=== PATIENT | female | born 1975 | race Caucasian/White ===

== ENCOUNTER 2018-06-24 12:53 | Inpatient (IN) | payer MEDICAID ==
[~2018-06-24] VITALS: Ht 149.9 cm; Wt 62.7 kg
[2018-06-24] MEDS ORDERED: HYDROmorphone 1 mg/ml syringe IM ONE (13:25)
[2018-06-24] MEDS ORDERED: ondansetron/PF 4mg/2ml inj IV ONE (13:50)
[2018-06-24] MEDS ORDERED: HYDROmorphone 1 mg/ml syringe IV ONE (14:45)
[2018-06-24 15:00] LABS: ALANINE AMINOTRANSFERASE 19 U/L (12-78); ALBUMIN 3.6 G/DL (3.4-5.0); ALKALINE PHOSPHATASE 69 IU/L (46-116); ANION GAP 7 (8-16); ASPARTATE AMINO TRANSFERASE 15 U/L (10-37); BILIRUBIN,TOTAL 0.3 MG/DL (0.1-1.0); BLOOD UREA NITROGEN 16 MG/DL (7-18); BUN/CREATININE RATIO 29.1 (6.6-38.0); CALCIUM 9.4 MG/DL (8.5-10.1); CHLORIDE 104 MMOL/L (99-107); CREATININE 0.55 MG/DL (0.40-0.90); GLUCOSE 102 MG/DL (70-104); POTASSIUM 4.4 MMOL/L (3.5-5.1); SODIUM 141 MMOL/L (135-145); TOTAL CARBON DIOXIDE 30.1 MMOL/L (24-32); TOTAL PROTEIN 7.3 G/DL (6.4-8.2); eGFR > 90 ML/MIN
[2018-06-24 15:08] LABS: PARTIAL THROMBOPLASTIN TIME 27 SECONDS (22-32)
[2018-06-24 15:27] LABS: HEMATOCRIT 42.8 % (35.0-45.0); HEMOGLOBIN 14.1 g/dl (12.0-16.0); MEAN CORPUSCULAR HEMOGLOBIN 30.7 PG (27.0-31.0); MEAN CORPUSCULAR VOLUME 93.1 FL (78-98); MEAN PLATELET VOLUME 9.6 FL (7.4-10.4); PLATELET COUNT 316 X10'3 (140-440); RED CELL DISTRIBUTION WIDTH 13.7 % (11.5-14.5); WHITE BLOOD COUNT 8.1 X10'3 (4.5-11.0)
[2018-06-24 15:46] LABS: PLATELET ESTIMATE NORMAL; TOTAL CELLS COUNTED 100
[2018-06-24 15:55] LABS: CLARITY,URINE SLIGHTLY CLOUDY (Clear); COLOR,URINE YELLOW (Yellow); GLUCOSE, URINE NEGATIVE (Neg); KETONES,URINE NEGATIVE (Neg); LEUKOCYTE ESTERASE ,URINE NEGATIVE (Neg); NITRITES, URINE POSITIVE (Neg); OCCULT BLOOD,URINE NEGATIVE (Neg); PH,URINE 6.5 (4.8-8.0); PROTEIN,URINE NEGATIVE (Neg)
[2018-06-24 16:05] LABS: UA COLLECTION TYPE FOLEY CATH
[2018-06-24 16:07] LABS: BACTERIA,URINE 4+ /HPF (Neg); RBC,URINE NONE SEEN /HPF (0-2); WBC,URINE 0-4 /HPF (0-4)
[2018-06-24 16:08] LABS: SQUAMOUS EPITHELIAL CELL,UR FEW /LPF (FEW)
[2018-06-24] MEDS ORDERED: CLON-527 PO (16:28)
[2018-06-24] MEDS ORDERED: ATOR20TA66 PO (16:30)
[2018-06-24] MEDS ORDERED: CARI350T PO (16:30)
[2018-06-24] MEDS ORDERED: OXYC-150 PO (16:31)
[2018-06-24] MEDS ORDERED: HYDROcodone/acetaminophen 5mg/325mg tablet PO PRN (16:35)
[2018-06-24] MEDS ORDERED: HYDROcodone/acetaminophen 10/325mg tab PO PRN (16:35)
[2018-06-24] MEDS ORDERED: magnesium 4gm in 100ml NS 100 ML IV PRN (16:35)
[2018-06-24] MEDS ORDERED: potassium Cl 20 mEq SR tablet PO PRN ×2 (16:35)
[2018-06-24] MEDS ORDERED: magnesium 1gm/100ml D5W IVPB 100 ML IV PRN (16:35)
[2018-06-24] MEDS ORDERED: magnesium Cl slow-release 64mg tablet PO PRN (16:35)
[2018-06-24] MEDS ORDERED: mag hydrox/Alum hydrox/simeth 30ml oral suspension PO PRN (16:35)
[2018-06-24] MEDS ORDERED: potassium Cl 40MEQ/NS 500ml 500 ML IV PRN ×2 (16:35)
[2018-06-24] MEDS ORDERED: acetaminophen 325mg tablet PO PRN ×2 (16:35)
[2018-06-24] MEDS ORDERED: magnesium hydroxide 30ml (MOM) UD suspension PO PRN (16:35)
[2018-06-24] MEDS ORDERED: nicotine prolacrilex 2mg gum BC PRN (16:40)
[2018-06-24] MEDS ORDERED: nicotine 21mg patch - 24 hr TD ONE (16:40)
[2018-06-24] MEDS: normal saline 1000ml 1,000 ML IV SCH (17:38)
[2018-06-24 19:00] VITALS: BP 113/68
[2018-06-24] MEDS ORDERED: oxyCODONE/APAP 5-325mg tablet PO PRN (19:25)
[2018-06-24] MEDS: clonazePAM 1mg tablet PO SCH (20:03)
[2018-06-24] MEDS: HYDROmorphone 1 mg/ml syringe IV PRN (20:03)
[2018-06-24] MEDS: heparin, porcine 5000 units/ml vial SQ SCH (20:03)
[2018-06-24] MEDS: ondansetron/PF 4mg/2ml inj IV PRN (20:05)
[2018-06-24 22:00] VITALS: BP 102/53
[2018-06-25] MEDS: normal saline 1000ml 1,000 ML IV SCH ×3 (02:31→15:40)
[2018-06-25] MEDS: oxyCODONE/APAP 10/325mg tablet PO PRN ×3 (03:04→14:42)
[2018-06-25] MEDS: ondansetron/PF 4mg/2ml inj IV PRN ×2 (03:43→13:00)
[2018-06-25] MEDS: HYDROmorphone 1 mg/ml syringe IV PRN ×4 (04:17→23:31)
[2018-06-25 05:54] LABS: ALBUMIN 2.9 G/DL (3.4-5.0); ANION GAP 7 (8-16); BLOOD UREA NITROGEN 13 MG/DL (7-18); BUN/CREATININE RATIO 27.7 (6.6-38.0); CALCIUM 8.5 MG/DL (8.5-10.1); CHLORIDE 108 MMOL/L (99-107); CREATININE 0.47 MG/DL (0.40-0.90); GLUCOSE 91 MG/DL (70-104); MAGNESIUM 1.8 MG/DL (1.5-2.4); POTASSIUM 3.6 MMOL/L (3.5-5.1); SODIUM 141 MMOL/L (135-145); TOTAL CARBON DIOXIDE 26.1 MMOL/L (24-32); eGFR > 90 ML/MIN
[2018-06-25 06:00] VITALS: BP 100/62
[2018-06-25 06:11] LABS: BASOPHILS # (AUTO) 0.1 X10'3 (0-0.2); BASOPHILS % (AUTO) 2.3 % (0-1); EOSINOPHILS # (AUTO) 0.1 X10'3 (0-0.9); EOSINOPHILS % (AUTO) 2.8 % (0-6); HEMATOCRIT 36.9 % (35.0-45.0); HEMOGLOBIN 12.4 g/dl (12.0-16.0); LYMPHOCYTES # (AUTO) 1.4 X10'3 (1.1-4.8); LYMPHOCYTES % (AUTO) 29.5 % (21-51); MEAN CORPUSCULAR HEMOGLOBIN 31.2 PG (27.0-31.0); MEAN CORPUSCULAR HGB CONC 33.5 % (33.0-36.5); MEAN CORPUSCULAR VOLUME 93.3 FL (78-98); MEAN PLATELET VOLUME 9.7 FL (7.4-10.4); MONOCYTES # (AUTO) 0.4 X10'3 (0-0.9); MONOCYTES % (AUTO) 8.4 % (2-12); NEUTROPHILS # (AUTO) 2.6 X10'3 (1.8-7.7); PLATELET COUNT 241 X10'3 (140-440); RED BLOOD COUNT 3.96 X10'6 (4.20-5.60); RED CELL DISTRIBUTION WIDTH 13.8 % (11.5-14.5); WHITE BLOOD COUNT 4.6 X10'3 (4.5-11.0)
[2018-06-25] MEDS: heparin, porcine 5000 units/ml vial SQ SCH ×2 (07:00→21:10)
[2018-06-25] MEDS: K and/or MAG REPLACEMENT MC SCH (08:00)
[2018-06-25] MEDS: clonazePAM 1mg tablet PO SCH ×2 (08:31→21:04)
[2018-06-25] MEDS: atorvastatin 20mg tablet PO SCH (08:31)
[2018-06-25 10:00] VITALS: BP 93/49
[2018-06-25] MEDS: CefTRIAXone/D5W-Rocephin 1gm 50 ML IV SCH (10:23)
[2018-06-25] MEDS ORDERED: pneumococcal 23-VAL P-sac vacc 25 mcg/0.5ml vial IMVAC ONE (11:00)
[2018-06-25] MEDS ORDERED: metoclopramide 5 mg/ml inj IV PRN (15:10)
[2018-06-25 18:00] VITALS: BP 79/52
[2018-06-25 18:30] VITALS: BP 102/56
[2018-06-25] MEDS: diphenhydrAMINE 50 mg/ml inj IV PRN (20:56)
[2018-06-25] MEDS: lactobacillus rhamnosus 10,000 MMU CELLS/CAPSULE PO SCH (21:04)
[2018-06-25 22:00] VITALS: BP 90/66
[2018-06-26] MEDS: oxyCODONE/APAP 10/325mg tablet PO PRN ×4 (01:52→17:31)
[2018-06-26] MEDS: HYDROmorphone 1 mg/ml syringe IV PRN ×4 (04:18→19:55)
[2018-06-26 06:00] VITALS: BP 156/97
[2018-06-26 06:35] LABS: BASOPHILS # (AUTO) 0.1 X10'3 (0-0.2); BASOPHILS % (AUTO) 2.3 % (0-1); EOSINOPHILS # (AUTO) 0.2 X10'3 (0-0.9); EOSINOPHILS % (AUTO) 2.6 % (0-6); HEMATOCRIT 37.1 % (35.0-45.0); HEMOGLOBIN 12.3 g/dl (12.0-16.0); LYMPHOCYTES # (AUTO) 1.8 X10'3 (1.1-4.8); MEAN CORPUSCULAR HEMOGLOBIN 30.9 PG (27.0-31.0); MEAN CORPUSCULAR HGB CONC 33.1 % (33.0-36.5); MEAN CORPUSCULAR VOLUME 93.4 FL (78-98); MONOCYTES # (AUTO) 0.4 X10'3 (0-0.9); MONOCYTES % (AUTO) 6.9 % (2-12); NEUTROPHILS # (AUTO) 3.6 X10'3 (1.8-7.7); NEUTROPHILS % (AUTO) 59.2 % (42-75); PLATELET COUNT 233 X10'3 (140-440); RED BLOOD COUNT 3.97 X10'6 (4.20-5.60); RED CELL DISTRIBUTION WIDTH 13.7 % (11.5-14.5); WHITE BLOOD COUNT 6.1 X10'3 (4.5-11.0)
[2018-06-26 06:41] LABS: ALBUMIN 2.7 G/DL (3.4-5.0); ANION GAP 8 (8-16); BLOOD UREA NITROGEN 6 MG/DL (7-18); BUN/CREATININE RATIO 11.3 (6.6-38.0); CALCIUM 8.1 MG/DL (8.5-10.1); CHLORIDE 110 MMOL/L (99-107); CREATININE 0.53 MG/DL (0.40-0.90); GLUCOSE 77 MG/DL (70-104); MAGNESIUM 1.7 MG/DL (1.5-2.4); SODIUM 143 MMOL/L (135-145); TOTAL CARBON DIOXIDE 24.6 MMOL/L (24-32); eGFR > 90 ML/MIN
[2018-06-26 06:51] VITALS: BP 104/52
[2018-06-26] MEDS: atorvastatin 20mg tablet PO SCH (07:51)
[2018-06-26] MEDS: heparin, porcine 5000 units/ml vial SQ SCH ×2 (07:51→19:55)
[2018-06-26] MEDS: lactobacillus rhamnosus 10,000 MMU CELLS/CAPSULE PO SCH ×2 (07:51→19:54)
[2018-06-26] MEDS: clonazePAM 1mg tablet PO SCH ×2 (07:51→19:54)
[2018-06-26] MEDS: K and/or MAG REPLACEMENT MC SCH (08:00)
[2018-06-26] MEDS: normal saline 1000ml 1,000 ML IV SCH ×2 (08:31→16:17)
[2018-06-26] MEDS ORDERED: oxyCODONE/APAP 10/325mg tablet PO ONE (09:40)
[2018-06-26] MEDS ORDERED: ondansetron 4mg rapidly disintigrating tab PO ONE (09:40)
[2018-06-26 10:00] VITALS: BP 123/52
[2018-06-26] MEDS: CefTRIAXone/D5W-Rocephin 1gm 50 ML IV SCH (10:27)
[2018-06-26] MEDS ORDERED: nicotine prolacrilex 2mg gum BC PRN (14:15)
[2018-06-26] MEDS: diphenhydrAMINE 50 mg/ml inj IV PRN (16:17)
[2018-06-26 18:00] VITALS: BP 99/52
[2018-06-26] MEDS: ondansetron/PF 4mg/2ml inj IV PRN (19:55)
[2018-06-26 22:00] VITALS: BP 98/50
[2018-06-27] MEDS: oxyCODONE/APAP 10/325mg tablet PO PRN ×4 (00:52→18:30)
[2018-06-27] MEDS: HYDROmorphone 1 mg/ml syringe IV PRN ×3 (00:55→14:05)
[2018-06-27] MEDS: normal saline 1000ml 1,000 ML IV SCH (04:40)
[2018-06-27 06:54] LABS: BASOPHILS # (AUTO) 0.1 X10'3 (0-0.2); BASOPHILS % (AUTO) 1.4 % (0-1); EOSINOPHILS # (AUTO) 0.2 X10'3 (0-0.9); EOSINOPHILS % (AUTO) 3.3 % (0-6); HEMOGLOBIN 11.6 g/dl (12.0-16.0); LYMPHOCYTES # (AUTO) 1.8 X10'3 (1.1-4.8); LYMPHOCYTES % (AUTO) 29.8 % (21-51); MEAN CORPUSCULAR HEMOGLOBIN 31.2 PG (27.0-31.0); MEAN CORPUSCULAR HGB CONC 33.2 % (33.0-36.5); MEAN PLATELET VOLUME 8.9 FL (7.4-10.4); MONOCYTES # (AUTO) 0.6 X10'3 (0-0.9); MONOCYTES % (AUTO) 9.9 % (2-12); NEUTROPHILS # (AUTO) 3.3 X10'3 (1.8-7.7); NEUTROPHILS % (AUTO) 55.6 % (42-75); PLATELET COUNT 233 X10'3 (140-440); RED BLOOD COUNT 3.72 X10'6 (4.20-5.60); RED CELL DISTRIBUTION WIDTH 13.7 % (11.5-14.5); WHITE BLOOD COUNT 5.9 X10'3 (4.5-11.0)
[2018-06-27 07:00] VITALS: BP 102/49
[2018-06-27 07:04] LABS: ALBUMIN 2.8 G/DL (3.4-5.0); ANION GAP 6 (8-16); BLOOD UREA NITROGEN 7 MG/DL (7-18); BUN/CREATININE RATIO 11.7 (6.6-38.0); CALCIUM 8.1 MG/DL (8.5-10.1); CHLORIDE 109 MMOL/L (99-107); GLUCOSE 85 MG/DL (70-104); MAGNESIUM 1.9 MG/DL (1.5-2.4); POTASSIUM 3.6 MMOL/L (3.5-5.1); SODIUM 142 MMOL/L (135-145); TOTAL CARBON DIOXIDE 26.8 MMOL/L (24-32); eGFR > 90 ML/MIN
[2018-06-27] MEDS: CefTRIAXone/D5W-Rocephin 1gm 50 ML IV SCH (07:17)
[2018-06-27] MEDS: lactobacillus rhamnosus 10,000 MMU CELLS/CAPSULE PO SCH ×2 (07:17→19:31)
[2018-06-27] MEDS: clonazePAM 1mg tablet PO SCH ×2 (07:18→19:31)
[2018-06-27] MEDS: atorvastatin 20mg tablet PO SCH (07:18)
[2018-06-27] MEDS: heparin, porcine 5000 units/ml vial SQ SCH ×2 (07:19→19:31)
[2018-06-27] MEDS: K and/or MAG REPLACEMENT MC SCH (08:10)
[2018-06-27 11:00] VITALS: BP 101/82
[2018-06-27] MEDS: pantoprazole 40mg Tablet.DR PO SCH (12:58)
[2018-06-27] MEDS: ibuprofen tablet 400 MG TABLET PO SCH ×2 (12:58→17:30)
[2018-06-27] MEDS: Potassium Cl inj 20 MEQ in normal saline 1000ml 1,000 ML IV SCH (17:15)
[2018-06-27 18:00] VITALS: BP 89/41
[2018-06-27 18:15] VITALS: BP 125/65
[2018-06-27 22:00] VITALS: BP 120/65
[2018-06-28 03:00] VITALS: BP 96/42
[2018-06-28] MEDS: oxyCODONE/APAP 10/325mg tablet PO PRN ×5 (04:16→19:19)
[2018-06-28] MEDS: Potassium Cl inj 20 MEQ in normal saline 1000ml 1,000 ML IV SCH (06:45)
[2018-06-28 07:09] LABS: ALBUMIN 2.4 G/DL (3.4-5.0); ANION GAP 7 (8-16); BLOOD UREA NITROGEN 5 MG/DL (7-18); BUN/CREATININE RATIO 9.3 (6.6-38.0); CALCIUM 8.5 MG/DL (8.5-10.1); CHLORIDE 112 MMOL/L (99-107); CREATININE 0.54 MG/DL (0.40-0.90); GLUCOSE 85 MG/DL (70-104); MAGNESIUM 1.6 MG/DL (1.5-2.4); POTASSIUM 4.1 MMOL/L (3.5-5.1); SODIUM 143 MMOL/L (135-145); TOTAL CARBON DIOXIDE 24.4 MMOL/L (24-32); eGFR > 90 ML/MIN
[2018-06-28] MEDS: pantoprazole 40mg Tablet.DR PO SCH ×2 (07:30→08:29)
[2018-06-28] MEDS: lactobacillus rhamnosus 10,000 MMU CELLS/CAPSULE PO SCH ×3 (08:00→19:19)
[2018-06-28] MEDS: atorvastatin 20mg tablet PO SCH ×2 (08:00→08:30)
[2018-06-28] MEDS: K and/or MAG REPLACEMENT MC SCH (08:00)
[2018-06-28] MEDS: heparin, porcine 5000 units/ml vial SQ SCH ×3 (08:00→19:19)
[2018-06-28] MEDS: clonazePAM 1mg tablet PO SCH ×2 (08:29→19:19)
[2018-06-28] MEDS: ibuprofen tablet 400 MG TABLET PO SCH ×3 (08:30→18:43)
[2018-06-28 10:00] VITALS: BP 134/56
[2018-06-28] MEDS: levoFLOXACIN 500mg tablet PO SCH (10:56)
[2018-06-28 18:00] VITALS: BP 101/46
[2018-06-28 21:13] VITALS: BP 103/62
[2018-06-29] MEDS: oxyCODONE/APAP 10/325mg tablet PO PRN ×6 (00:24→23:55)
[2018-06-29 06:00] VITALS: BP 103/47
[2018-06-29 07:25] LABS: ALBUMIN 2.5 G/DL (3.4-5.0); ANION GAP 7 (8-16); BLOOD UREA NITROGEN 6 MG/DL (7-18); CALCIUM 8.2 MG/DL (8.5-10.1); CHLORIDE 110 MMOL/L (99-107); GLUCOSE 81 MG/DL (70-104); MAGNESIUM 1.5 MG/DL (1.5-2.4); POTASSIUM 3.7 MMOL/L (3.5-5.1); SODIUM 144 MMOL/L (135-145); TOTAL CARBON DIOXIDE 27.5 MMOL/L (24-32); eGFR > 90 ML/MIN
[2018-06-29] MEDS: clonazePAM 1mg tablet PO SCH ×2 (07:48→19:38)
[2018-06-29] MEDS: lactobacillus rhamnosus 10,000 MMU CELLS/CAPSULE PO SCH ×2 (07:48→19:38)
[2018-06-29] MEDS: ibuprofen tablet 400 MG TABLET PO SCH ×2 (07:48→12:34)
[2018-06-29] MEDS: atorvastatin 20mg tablet PO SCH (07:48)
[2018-06-29] MEDS: pantoprazole 40mg Tablet.DR PO SCH (07:48)
[2018-06-29] MEDS: heparin, porcine 5000 units/ml vial SQ SCH ×2 (07:49→19:39)
[2018-06-29] MEDS: K and/or MAG REPLACEMENT MC SCH (08:00)
[2018-06-29 10:00] VITALS: BP 109/62
[2018-06-29] MEDS: levoFLOXACIN 500mg tablet PO SCH (10:17)
[2018-06-29] MEDS: docusate sod 100mg capsule PO SCH ×2 (13:12→19:38)
[2018-06-29 18:00] VITALS: BP 100/62
[2018-06-29 21:57] VITALS: BP 110/54
[2018-06-30 06:00] VITALS: BP 87/43
[2018-06-30] MEDS: K and/or MAG REPLACEMENT MC SCH (08:00)
[2018-06-30] MEDS: clonazePAM 1mg tablet PO SCH ×2 (08:37→19:53)
[2018-06-30] MEDS: lactobacillus rhamnosus 10,000 MMU CELLS/CAPSULE PO SCH ×2 (08:38→19:53)
[2018-06-30] MEDS: oxyCODONE/APAP 10/325mg tablet PO PRN ×4 (08:38→23:55)
[2018-06-30] MEDS: docusate sod 100mg capsule PO SCH ×2 (08:38→19:54)
[2018-06-30] MEDS: atorvastatin 20mg tablet PO SCH (08:38)
[2018-06-30] MEDS: heparin, porcine 5000 units/ml vial SQ SCH ×2 (08:39→19:54)
[2018-06-30] MEDS: pantoprazole 40mg Tablet.DR PO SCH (08:49)
[2018-06-30 10:00] VITALS: BP 118/56
[2018-06-30] MEDS: levoFLOXACIN 500mg tablet PO SCH (12:21)
[2018-06-30] MEDS ORDERED: IBUP-1984 PO (16:31)
[2018-06-30] MEDS ORDERED: LEVO500T89 PO (16:31)
[2018-06-30] MEDS ORDERED: PER5325T PO (16:31)
[2018-06-30] MEDS: ibuprofen tablet 400 MG TABLET PO PRN (17:11)
[2018-06-30 18:00] VITALS: BP 134/69
[2018-07-01] MEDS: oxyCODONE/APAP 10/325mg tablet PO PRN ×5 (05:24→21:20)
[2018-07-01 06:00] VITALS: BP 97/45
[2018-07-01] MEDS: atorvastatin 20mg tablet PO SCH (07:07)
[2018-07-01] MEDS: pantoprazole 40mg Tablet.DR PO SCH (07:07)
[2018-07-01] MEDS: lactobacillus rhamnosus 10,000 MMU CELLS/CAPSULE PO SCH ×2 (07:07→20:10)
[2018-07-01] MEDS: clonazePAM 1mg tablet PO SCH ×2 (07:07→20:10)
[2018-07-01] MEDS: docusate sod 100mg capsule PO SCH ×2 (07:07→20:11)
[2018-07-01] MEDS: heparin, porcine 5000 units/ml vial SQ SCH ×2 (07:08→20:11)
[2018-07-01] MEDS: K and/or MAG REPLACEMENT MC SCH (08:00)
[2018-07-01] MEDS: levoFLOXACIN 500mg tablet PO SCH (11:35)
[2018-07-01 18:00] VITALS: BP 93/57
[2018-07-01 22:00] VITALS: BP 109/56
[2018-07-02] MEDS: oxyCODONE/APAP 10/325mg tablet PO PRN ×6 (01:03→21:14)
[2018-07-02 06:00] VITALS: BP 99/50
[2018-07-02] MEDS: K and/or MAG REPLACEMENT MC SCH (07:44)
[2018-07-02] MEDS: pantoprazole 40mg Tablet.DR PO SCH (07:51)
[2018-07-02] MEDS: atorvastatin 20mg tablet PO SCH (07:52)
[2018-07-02] MEDS: clonazePAM 1mg tablet PO SCH ×2 (07:52→21:13)
[2018-07-02] MEDS: lactobacillus rhamnosus 10,000 MMU CELLS/CAPSULE PO SCH ×2 (07:52→21:14)
[2018-07-02] MEDS: docusate sod 100mg capsule PO SCH ×2 (07:52→21:14)
[2018-07-02] MEDS: heparin, porcine 5000 units/ml vial SQ SCH ×2 (07:54→21:16)
[2018-07-02 10:00] VITALS: BP 78/48
[2018-07-02] MEDS: levoFLOXACIN 500mg tablet PO SCH (11:36)
[2018-07-02] MEDS: ibuprofen tablet 400 MG TABLET PO PRN (13:14)
[2018-07-02 18:00] VITALS: BP 119/68
[2018-07-02 22:00] VITALS: BP 93/51
[2018-07-03] MEDS: oxyCODONE/APAP 10/325mg tablet PO PRN ×3 (01:18→14:03)
[2018-07-03 06:00] VITALS: BP 104/55
[2018-07-03] MEDS: K and/or MAG REPLACEMENT MC SCH (08:00)
[2018-07-03] MEDS: docusate sod 100mg capsule PO SCH (08:54)
[2018-07-03] MEDS: lactobacillus rhamnosus 10,000 MMU CELLS/CAPSULE PO SCH (08:54)
[2018-07-03] MEDS: pantoprazole 40mg Tablet.DR PO SCH (08:54)
[2018-07-03] MEDS: ibuprofen tablet 400 MG TABLET PO PRN (08:54)
[2018-07-03] MEDS: atorvastatin 20mg tablet PO SCH (08:55)
[2018-07-03] MEDS: clonazePAM 1mg tablet PO SCH (08:55)
[2018-07-03] MEDS: heparin, porcine 5000 units/ml vial SQ SCH (08:57)
[2018-07-03 10:00] VITALS: BP 127/49
[2018-07-03] MEDS: levoFLOXACIN 500mg tablet PO SCH (11:28)
[2018-07-03] MEDS ORDERED: ondansetron 4mg rapidly disintigrating tab PO PRN (12:15)
== END 2018-07-03 15:00 | disposition home or self-care (01) | DRG 349 ==
LOC: ER 12:54 → ED HOLD 16:31 → ORTHO 4S 18:48
PROVIDERS: ADMIT Hospitalist; ATTEND Family Medicine
PROC: 3E0234Z Introduction of Serum, Toxoid and Vaccine into Muscle, Percutaneous Approach (ICD-10-PCS; principal; 2018-06-25)
PROC: 3E02340 Introduction of Influenza Vaccine into Muscle, Percutaneous Approach (ICD-10-PCS; 2018-06-25)
DX: T84.010A Broken internal right hip prosthesis, initial encounter (principal); M32.9 Systemic lupus erythematosus, unspecified; M80.051A Age-related osteoporosis with current pathological fracture, right femur, initial encounter for fracture; G89.4 Chronic pain syndrome; N39.0 Urinary tract infection, site not specified; B96.20 Unspecified Escherichia coli [E. coli] as the cause of diseases classified elsewhere; B96.4 Proteus (mirabilis) (morganii) as the cause of diseases classified elsewhere; E78.5 Hyperlipidemia, unspecified; K59.09 Other constipation; Y79.2 Prosthetic and other implants, materials and accessory orthopedic devices associated with adverse incidents; F17.200 Nicotine dependence, unspecified, uncomplicated; Z96.643 Presence of artificial hip joint, bilateral; W05.0XXA Fall from non-moving wheelchair, initial encounter; Z99.3 Dependence on wheelchair; Z88.8 Allergy status to other drugs, medicaments and biological substances; Z88.6 Allergy status to analgesic agent; Z79.899 Other long term (current) drug therapy; Y92.89 Other specified places as the place of occurrence of the external cause; Y93.89 Activity, other specified; Y99.8 Other external cause status; Z23 Encounter for immunization
CPT/HCPCS: 36415; 73502; 73503; 73522; 73560; 73564; 73610; 74018; 80048; 80053; 81001; 83735; 85025; 85610; 85730; 86885; 86900; 86901; 87070; 87077; 87088; 87186; 90732; 93005; 96372; 96374; 96375; 97110; 97161; 97530; 99285; G0378; J0696; J1170; J1200; J1644; J2405; J2765; J3480; J7030; Q2037

== ENCOUNTER 2018-09-05 09:21 | Emergency (ER) | payer MEDICAID ==
[~2018-09-05] VITALS: Ht 149.9 cm; Wt 62.3 kg
[~2018-09-05 09:21] MED LIST: ATOR20TA66 PO; CARI350T PO; CLON-527 PO; IBUP-1984 PO; LEVO500T89 PO; ONDA8TAB6 PO; PER10325T PO; PER5325T PO
[2018-09-05 09:32] VITALS: BP 136/87
[2018-09-05] MEDS ORDERED: ALBU18HF2 INH (10:05)
[2018-09-05] MEDS ORDERED: GUAI-178 PO (10:05)
[2018-09-05] MEDS ORDERED: DOXY100C43 PO (10:05)
== END 2018-09-05 10:13 | disposition home or self-care (01) ==
LOC: ER 09:21
DX: J20.9 Acute bronchitis, unspecified (principal); G89.29 Other chronic pain; Z88.6 Allergy status to analgesic agent; Z88.8 Allergy status to other drugs, medicaments and biological substances
CPT/HCPCS: 99283

== ENCOUNTER 2018-11-11 12:46 | Emergency (ER) | payer MEDICAID ==
[~2018-11-11] VITALS: Ht 149.9 cm; Wt 75.0 kg
[~2018-11-11 12:46] MED LIST changes: +ALBU18HF2 INH; +GUAI-178 PO; -PER10325T PO
[2018-11-11 12:47] VITALS: BP 137/81
[2018-11-11] MEDS ORDERED: HYDROcodone/acetaminophen 10/325mg tab PO ONE (14:50)
[2018-11-11] MEDS ORDERED: HYDR-4353 PO (15:38)
== END 2018-11-11 16:06 | disposition home or self-care (01) ==
LOC: ER 12:46
DX: S72.001K Fracture of unspecified part of neck of right femur, subsequent encounter for closed fracture with nonunion (principal); G89.29 Other chronic pain; Z88.6 Allergy status to analgesic agent; Z88.8 Allergy status to other drugs, medicaments and biological substances; X58.XXXD Exposure to other specified factors, subsequent encounter
CPT/HCPCS: 73502; 99284

== ENCOUNTER 2018-11-25 15:21 | Emergency (ER) | payer MEDICAID ==
[~2018-11-25] VITALS: Ht 149.9 cm; Wt 70.9 kg
[2018-11-25] MEDS ORDERED: HYDROcodone/acetaminophen 10/325mg tab PO ONE (17:20)
[2018-11-25 18:09] LABS: BASOPHILS # (AUTO) 0.1 X10'3 (0-0.2); BASOPHILS % (AUTO) 0.5 % (0-1); EOSINOPHILS # (AUTO) 0.1 X10'3 (0-0.9); EOSINOPHILS % (AUTO) 0.8 % (0-6); HEMOGLOBIN 14.6 g/dl (12.0-16.0); LYMPHOCYTES # (AUTO) 1.9 X10'3 (1.1-4.8); MEAN CORPUSCULAR HEMOGLOBIN 30.3 PG (27.0-31.0); MEAN CORPUSCULAR HGB CONC 33.2 g/dL (33.0-36.5); MEAN CORPUSCULAR VOLUME 91.2 FL (78-98); MEAN PLATELET VOLUME 8.8 FL (7.4-10.4); MONOCYTES # (AUTO) 1.2 X10'3 (0-0.9); MONOCYTES % (AUTO) 7.7 % (2-12); NEUTROPHILS # (AUTO) 12.2 X10'3 (1.8-7.7); PLATELET COUNT 254 X10'3 (140-440); RED BLOOD COUNT 4.83 X10'6 (4.20-5.60); WHITE BLOOD COUNT 15.5 X10'3 (4.5-11.0)
[2018-11-25 18:19] LABS: ALANINE AMINOTRANSFERASE 22 U/L (12-78); ALBUMIN 3.6 G/DL (3.4-5.0); ALBUMIN/GLOBULIN RATIO 0.9 (1.1-1.5); ALKALINE PHOSPHATASE 105 IU/L (46-116); ANION GAP 7 (8-16); ASPARTATE AMINO TRANSFERASE 26 U/L (10-37); BILIRUBIN,TOTAL 0.5 MG/DL (0.1-1.0); BLOOD UREA NITROGEN 8 MG/DL (7-18); BUN/CREATININE RATIO 13.8 (6.6-38.0); CALCIUM 9.4 MG/DL (8.5-10.1); CHLORIDE 103 MMOL/L (99-107); CREATININE 0.58 MG/DL (0.40-0.90); GLUCOSE 81 MG/DL (70-104); POTASSIUM 3.9 MMOL/L (3.5-5.1); SODIUM 137 MMOL/L (135-145); TOTAL CARBON DIOXIDE 26.9 MMOL/L (24-32); TOTAL PROTEIN 7.6 G/DL (6.4-8.2); eGFR > 90 ML/MIN
[2018-11-25] MEDS ORDERED: ondansetron 4mg rapidly disintigrating tab PO ONE (19:05)
[2018-11-25] MEDS ORDERED: oxyCODONE/APAP 10/325mg tablet PO ONE (19:50)
[2018-11-25 20:06] VITALS: BP 86/65
[2018-11-25] MEDS ORDERED: OXYC-138 PO (21:06)
== END 2018-11-25 21:46 | disposition home or self-care (01) ==
LOC: ER 15:21
DX: M25.551 Pain in right hip (principal); G89.29 Other chronic pain; Z98.890 Other specified postprocedural states; Z88.5 Allergy status to narcotic agent; Z88.8 Allergy status to other drugs, medicaments and biological substances; Z79.899 Other long term (current) drug therapy
CPT/HCPCS: 36415; 73552; 80053; 84145; 85025; 99284